=== PATIENT | female | born 1985 | race Two or more races ===

== ENCOUNTER 2025-08-25 06:06 | Emergency (ER) | payer MEDICAID, SELFPAY ==
[2025-08-25 06:08] VITALS: BMI 29.7
[2025-08-25 06:17] VITALS: BP 123/84; PULSE 110; RESP 18; TEMP 36.4; O2SAT 99
--- NOTE | 2025-08-25 06:33 | XR_ITS ---
Examination: CT abdomen and pelvis without contrast. Coronal 3-D reconstructions. Sagittal 2-D reconstructions. Date and time of exam: August 25, 2025, 0809 hours INDICATIONS: Nausea abdominal pain dark stools beginning 7 days ago COMPARISON: July 29, 2024 CTDI: vol (mGy): 9.09 DLP: (mGycm): 915 Technique: Axial images of the abdomen have been obtained, 3 mm slice thickness Intravenous contrast material has not been administered. Low dose protocols were performed. One or more of the following dose reduction techniques were used; automated exposure control, adjustment of the mA and/or KV according to patient size, use of iterative reconstruction technique. Findings: No focal liver or splenic lesions No gallstones No pancreatic or adrenal mass No renal or ureteral calculi, no hydronephrosis Aorta normal size 20 mm fat-containing umbilical hernia. No bowel obstruction Normal appendix No diverticulitis or nonspecific colitis on this noncontrast study Urinary bladder intact The osseous structures are intact IMPRESSION: No renal or ureteral calculi, no hydronephrosis Normal appendix 20 mm fat-containing umbilical hernia. No bowel obstruction No diverticulitis or nonspecific colitis on this noncontrast study
--- NOTE | 2025-08-25 06:33 | EDRME_ITS ---
Rapid Medical Screening Exam [facility] Arrival date/time: 08/25/25 06:06 40-year-old female presents to the emergency room today complaints of nausea abdominal pain and dark stools patient reports history of hiatal hernia causing her to have pain patient also reports that she has been drinking Pepto since Chief Complaint: GI Bleed Vital signs: Vital Signs Temperature 97.6 F 08/25/25 06:17 Pulse Rate 110 H 08/25/25 06:17 Respiratory Rate 18 08/25/25 06:17 Blood Pressure 123/84 08/25/25 06:17 Pulse Oximetry (%) 99 08/25/25 06:17 Oxygen Delivery Method Room Air 08/25/25 06:17 Exam: On exam patient does not appear ill or toxic no acute distress Clinical Impression: Lab work and imaging ordered
[2025-08-25 07:28] LABS: Collection Type, Urine Clean Catch
[2025-08-25] MEDS: ONDANSETRON ODT 4 MG TABRAP PO (07:34)
[2025-08-25 07:36] LABS: Basophils # (Auto) 0.0 Thou/mm3 (0.0-0.2); Basophils % (Auto) 0 % (0-2.5); Eosinophils # (Auto) 0.0 Thou/mm3 (0.0-0.5); Eosinophils % (Auto) 0 % (0-10); Hematocrit 40.0 % (36.0-46.0); Hemoglobin 13.6 g/dL (12.0-16.0); Immature Granulocytes Auto 0.03 Thou/mm3 (0.00-0.00); Lymphocytes # (Auto) 1.8 Thou/mm3 (1.0-4.8); Lymphocytes % (Auto) 14 % (10-50); Mean Corpuscular HGB Conc 34.0 g/dl (31.0-37.0); Mean Corpuscular Hemoglobin 27.9 pg (25.0-35.0); Mean Corpuscular Volume 82 fL (80-100); Monocytes # (Auto) 0.7 Thou/mm3 (0.0-0.8); Monocytes % (Auto) 6 % (0-12); Neutrophils # (Auto) 10.1 Thou/mm3 (1.8-7.7); Neutrophils % (Auto) 80 % (37-80); Nucleated Red Blood Cell # 0.00 Thou/mm3 (0.00-0.00); Nucleated Red Blood Cell % 0 /100 WBC (0); Platelet Count 404 Thou/mm3 (140-440); RDW Standard Deviation 40.6 fL (36.4-46.3); Red Blood Count 4.88 Miln/mm3 (4.00-5.20); White Blood Count 12.7 Thou/mm3 (3.6-11.0)
[2025-08-25 07:42] LABS: Bilirubin,Urine Negative (Negative); Blood,Urine 1+ (Negative); Clarity,Urine Clear (Clear/Hazy); Color,Urine Yellow (Lt Yel-Yel); Culture Indicated,Urine Not Indicated; Glucose, Urine Negative (Negative); Hyaline Casts,Urine < 1 /hpf (0-1); Ketones,Urine 1+ (Negative); Leukocyte Esterase,Urine Negative (Negative); Nitrite,Urine Negative (Negative); PH,Urine 6.5 (5.0-7.0); Protein,Urine 1+ (Neg - Trace); RBC,Urine 3 /hpf (0-3); Specific Gravity,Urine 1.026 (1.001-1.035); Squamous Epithelial Cell,Urine 3 /hpf (0-5); Urobilinogen,Urine Negative mg/dL (0.0-1.0); WBC,Urine 4 /hpf (0-5)
[2025-08-25 07:46] LABS: Alanine Aminotransferase 26 U/L (10-49); Albumin, Serum 5.0 gm/dL (3.5-5.0); Albumin/Globulin Ratio 2.4 (1.2-2.2); Alkaline Phosphatase 82 U/L (46-116); Anion Gap 11 (7-16); Aspartate Amino Transferase 21 U/L (0-34); BUN/Creatinine Ratio 14 Ratio (12-20); Bilirubin,Total 0.5 mg/dL (0.3-1.2); Blood Urea Nitrogen 13 mg/dL (9-23); Calcium 10.2 mg/dL (8.3-10.6); Calcium (Corrected) 10.2 mg/dL (8.5-10.1); Carbon Dioxide 26.7 mMol/L (20.0-31.0); Chloride 103 mMol/L (98-107); Creatinine (Component) 0.9 mg/dL (0.6-1.3); Estimated Creatinine Clearance 93.7 mL/min (>60); Globulin 2.1 gm/dL (2.3-3.5); Glucose 105 mg/dL (74-106); Lipase 31 U/L (12-53); Osmolality,Calculated 281 (275-295); Potassium 3.4 mMol/L (3.4-5.1); Sodium 141 mMol/L (136-145); Total Protein 7.1 gm/dL (5.7-8.2); Troponin I < 0.002 ng/mL (0.0-0.045); eGFR > 60 See Note
[2025-08-25 07:54] LABS: HCG Qualitative,Urine Negative
--- NOTE | 2025-08-25 09:54 | EDNOTE_ITS ---
Nausea/Vomit./Diarrhea-RME/HPI General Chief complaint: GI Bleed Stated complaint: VOMITING, BLACK STOOLS Time Seen by Provider: 08/25/25 09:53 Arrival date/time: 08/25/25 06:06 RME / HPI RME / HPI Narrative: 08/25/25 06:06 40-year-old female presents to the emergency room today complaints of nausea abdominal pain and dark stools patient reports history of hiatal hernia causing her to have pain patient also reports that she has been drinking Pepto since DR. SENA MAIN ED EVALUATION 40 year old female with history of bipolar disorder and anxiety presents to the ED for evaluation of abdominal pain beginning 6 days ago. Described as a dull ache that is located most to the upper abdomen, rating 6/10 in severity. Accompanied by nausea, vomiting, and black stools. Reports taking Naproxen, Pepto bismol, and Mylanta with little improvement in pain. No other associated symptoms reported. Denies fever, chills, sweating. Denies chest pain, cough, shortness of breath. Denies dysuria, urinary frequency and urgency. Exam: On exam patient does not appear ill or toxic no acute distress Impression: Lab work and imaging ordered Related Data Previous Rx's ?Medication ?Instructions ?Recorded naproxen 500 mg tablet 500 mg PO BID #20 tabs 07/09 eszopiclone 2 mg tablet (Lunesta) 5 mg (2.5 x 2 mg) PO .qhs #5 tabs 12/14/18 ondansetron HCl 4 mg tablet 8 mg (2 x 4 mg) PO Q8H PRN nausea 02/07/21 (Zofran) and vomiting #20 tabs pantoprazole 20 mg tablet,delayed 20 mg PO QDAY #30 ta bs 02/08/21 release (Protonix) prochlorperazine 25 mg rectal 25 mg MT BID PRN nausea and 02/08/21 suppository (Compazine) vomiting #12 ea sucralfate 1 gram tablet (Carafate) 1 g PO BID #30 tab s 02/08/21 promethazine 12.5 mg rectal 12.5 mg MT Q8HR PRN nausea and 02/12/21 suppository vomiting #12 ea hydrocodone 5 mg-acetaminophen 325 1 tab PO Q4H PRN pa in #14 tabs 10/10/21 mg tablet promethazine 12.5 mg rectal 12.5 mg MT Q6H PRN nausea and 08/06/21 suppository vomiting #12 ea aluminum-mag hydroxide-simethicone 5 ml PO QID PRN ind igestion #375 mL 08/07/21 400 mg-400 mg-40 mg/5 mL oral susp (Maalox Maximum Strength) famotidine 20 mg tablet 20 mg PO QDAY #30 tabs 08/07 omeprazole 20 mg capsule,delayed 20 mg PO QDAY #14 cap s 08/12/21 release ondansetron 4 mg disintegrating 4 mg PO Q8H PRN nausea and 07/29/24 tablet vomiting #10 tabs omeprazole 20 mg capsule,delayed 20 mg PO QDAY #30 cap s 08/25/25 release ondansetron 4 mg disintegrating 4 mg PO Q8H PRN nausea and 08/25/25 tablet vomiting #14 tabs Allergies Allergy/AdvReac Type Severity Reaction Status Date / Time gabapentin Allergy Intermediate HIVES Verified 08/25/25 06:08 tramadol Allergy Mild HEART Verified 08/25/25 06:08 PALPITATIONS Review of Systems Review of Systems Systems Reviewed: All systems reviewed, normal except as documented Past Medical History Past Medical History PSYCHO/SOCIAL: Positive Psychiatric Problems, Recreational Drug Use, Bipolar Disorder, Depression and Anxiety Surgical History SURGICAL: Positive Section Social History SMOKING STATUS: Never smoker ED Exam Narrative Physical exam: GENERAL APPEARANCE: alert and oriented x 4, well-developed, well-nourished, no acute distress HEENT: Normocephalic, atraumatic; pupils equal, round, reactive to light; EOMI; mucous membranes pink, moist; oropharynx clear NECK: Supple LUNGS: CTABL; no wheezes, no rales, no rhonchi HEART: Regular rate, regular rhythm; normal S1, S2; no murmurs ABDOMEN: non distended; normal BS; soft, no tenderness, no guarding, no rebound; no masses, no organomegaly, no hernia EXTREMITIES: atraumatic; no edema NEUROLOGIC: awake; alert and oriented x4; cranial nerves II-XII grossly intact PSYCHIATRIC: appropriate mood and affect SKIN: warm, dry, normal color; no rashes Course Course Course Narrative: Patient remains clinically stable throughout the emergency department visit. We reviewed all the results, analysis, and treatment plans. Patient is amenable to discharge. Strict return precautions were outlined. Quality Measures none Orders Category Date Time Status CT abdomen pelvis wo con Stat Exams 08/25/25 06:33 Completed CBC Stat Lab 08/25/25 07:19 Completed Comprehensive Metabolic Panel Stat Lab 08/25/25 07:19 Completed HCG Qualitative,Urine Stat Lab 08/25/25 07:23 Completed Lipase Stat Lab 08/25/25 07:19 Completed Troponin I Stat Lab 08/25/25 07:19 Completed UA, C/S IF [Urinalysis, C/S if Indicated] Stat Lab 08/25/25 07:23 Completed Lidocaine 2% Viscous [Xylocaine 2% Viscous] Med 08/25/25 10:02 Discontinued 15 ml PO X1 ONE Ondansetron Odt [Zofran Odt] Med 08/25/25 06:33 Discontinued 4 mg PO X1 ONE Pantoprazole [Protonix] Med 08/25/25 10:02 Discontinued 20 mg PO X1 ONE mg Hyd/Al Hyd/Mayelin Susp [Maalox Susp] Med 08/25/25 10:02 Discontinued 30 ml PO X1 ONE Vital Signs Vital signs: Vital Signs Temperature 97.6 F 08/25/25 06:17 Pulse Rate 110 H 08/25/25 06:17 Respiratory Rate 18 08/25/25 06:17 Blood Pressure 123/84 08/25/25 06:17 Pulse Oximetry (%) 99 08/25/25 06:17 Oxygen Delivery Method Room Air 08/25/25 06:17 Pulse ox is 99% on room air which is adequate. Nausea/Vomiting/Diarrhea MDM Narrative MDM Narrative:: Imani Donovan am scribing for and in the presence of Dr. Sena. Patient data External records reviewed:: [facility] previous records Clinical information provided by:: patient Social determinants that could affect healthcare access:: mental health Patient has the following chronic illnesses:: Bipolar disorder Anxiety How is presenting disease/condition affected by chronic disease/condition?: uneffected by Evaluation data The following diagnostics were reviewed and interpreted by me:: lab results and radiology exam(s) Lab and/or radiology exams considered but not ordered:: None Interpretation Summary: Ordering Physician: Jose ROPER)Elder NP Date of Service: 08/25/25 Procedure(s): CT abdomen pelvis wo con Accession Number(s): [id number] cc: Jose (VENUS),Elder DONOVAN; Cruzito Parry MD; NO PRIMARY/FAMILY,PHYSICIAN~ Examination: CT abdomen and pelvis without contrast. Coronal 3-D reconstructions. Sagittal 2-D reconstructions. Date and time of exam: August 25, 2025, 0809 hours INDICATIONS: Nausea abdominal pain dark stools beginning 7 days ago COMPARISON: July 29, 2024 CTDI: vol (mGy): 9.09 DLP: (mGycm): 915 Technique: Axial images of the abdomen have been obtained, 3 mm slice thickness Intravenous contrast material has not been administered. Low dose protocols were performed. One or more of the following dose reduction techniques were used; automated exposure control, adjustment of the mA and/or KV according to patient size, use of iterative reconstruction technique. Findings: No focal liver or splenic lesions No gallstones No pancreatic or adrenal mass No renal or ureteral calculi, no hydronephrosis Aorta normal size 20 mm fat-containing umbilical hernia. No bowel obstruction Normal appendix No diverticulitis or nonspecific colitis on this noncontrast study Urinary bladder intact The osseous structures are intact IMPRESSION: No renal or ureteral calculi, no hydronephrosis Normal appendix 20 mm fat-containing umbilical hernia. No bowel obstruction No diverticulitis or nonspecific colitis on this noncontrast study Dictated By: Cruzito Parry MD Signed By: <Electronically signed by Cruzito Parry MD in OV> 08/25/25 0858 Medications / Prescriptions Medications / Prescriptions considered but not ordered:: None Medication administrations:: Medication Administration History Discontinued Medications Al Hydrox/Mg Hydrox/Simethicone (Mg Hyd/Al Hyd/Mayelin (Maalox Reg) Susp 30 Ml Udc) 30 ml PO X1 ONE Stop: 08/25/25 10:03 Last Admin: 08/25/25 10:53 Dose: 30 ml Documented By: Lidocaine HCl (Lidocaine Viscous 2% 15 Ml Udc) 15 ml PO X1 ONE Stop: 08/25/25 10:03 Last Admin: 08/25/25 10:53 Dose: 15 ml Documented By: Ondansetron HCl (Ondansetron Odt 4 Mg Tabrap) 4 mg PO X1 ONE; Protocol Stop: 08/25/25 06:34 Last Admin: 08/25/25 07:34 Dose: 4 mg Documented By: DHRUV Pantoprazole Sodium (Pantoprazole 20 Mg Tablet) 20 mg PO X1 ONE Stop: 08/25/25 10:03 Last Admin: 08/25/25 10:56 Dose: 20 mg Documented By: See above Consultations Consultation(s) initiated? (list below): No Diagnosis Nausea Differential Diagnosis: food poisoning, gastroenteritis, drug-induced nausea and vomiting and dehydration Most likely diagnosis given after review of the tests above:: Gastritis Admission Indicated Admission indicated?: not indicated Explain why admission is indicated or not indicated:: With no condition needing emergent intervention, there was no indication for admission. Admission Request Was there a request for admission?: No Disposition Plan Disposition Plan: Discharge Discharge Attestation Discharge Attestation: The patient and all family members were given an opportunity to ask questions and understood the discharge instructions. Discharge instructions specifically effects, indications for sooner follow up or return to the emergency department, and the expected course of current diagnosis. Patient condition: Stable Discharge Plan Plan Patient Disposition: HOME (Self Care) Prescriptions/Referrals Prescriptions/Med Rec: New ondansetron 4 mg tablet,disintegrating 4 mg PO Q8H PRN (Reason: nausea and vomiting) Qty: 14 0RF omeprazole 20 mg capsule,delayed release(DR/EC) 20 mg PO QDAY Qty: 30 0RF No Action naproxen 500 mg tablet 500 mg PO BID Qty: 20 0RF eszopiclone [Lunesta] 2 mg tablet 5 mg PO .qhs Qty: 5 0RF prochlorperazine [Compazine] 25 mg suppository 25 mg MT BID PRN (Reason: nausea and vomiting) Qty: 12 0RF pantoprazole [Protonix] 20 mg tablet,delayed release (DR/EC) 20 mg PO QDAY Qty: 30 0RF sucralfate [Carafate] 1 gram tablet 1 g PO BID Qty: 30 0RF promethazine 12.5 mg suppository 12.5 mg MT Q8HR PRN (Reason: nausea and vomiting) Qty: 12 0RF promethazine 12.5 mg suppository 12.5 mg MT Q6H PRN (Reason: nausea and vomiting) Qty: 12 0RF alum-mag hydroxide-simeth [Maalox Maximum Strength] 400-400-40 mg/5 mL suspension 5 ml PO QID PRN (Reason: indigestion) Qty: 375 0RF famotidine 20 mg tablet 20 mg PO QDAY Qty: 30 0RF omeprazole 20 mg capsule,delayed release(DR/EC) 20 mg PO QDAY Qty: 14 0RF ondansetron HCl [Zofran] 4 mg tablet 8 mg PO Q8H PRN (Reason: nausea and vomiting) Qty: 20 0RF hydrocodone-acetaminophen 5-325 mg tablet 1 tab PO Q4H MDD 4 PRN (Reason: pain) Qty: 14 0RF ondansetron 4 mg tablet,disintegrating 4 mg PO Q8H PRN (Reason: nausea and vomiting) Qty: 10 0RF Referrals: No Primary/Family,Physician [Primary Care Provider] - In 1 week Problem List Clinical Impression: Gastritis Patient/Caregiver Discharge Instructions Education Materials: ED Gastritis (Adult) Print Language: Faroese Stand Alone Forms: [employer] Award Info., Patient Portal Info Letter
--- NOTE | 2025-08-25 09:54 | PC.NURSE ---
PT STATES SHE NEEDS TO GET TO WORK. ASKED DR. ROQUE TO REVIEW PT. PT PUT IN OLD TRIAGE FOR TO REVIEW.
[2025-08-25] MEDS: LIDOCAINE VISCOUS 2% 15 ML UDC PO (10:53)
[2025-08-25] MEDS: MG HYD/AL HYD/SIME (Maalox Reg) SUSP 30 ML UDC PO (10:53)
[2025-08-25] MEDS: PANTOPRAZOLE 20 MG TABLET PO (10:56)
== END 2025-08-25 11:00 | disposition home or self-care (01) ==
PROVIDERS: Nurse Practitioner Primary Care; Emergency Provider Emergency Medicine
DX: K29.70 Gastritis, unspecified, without bleeding (principal); F31.9 Bipolar disorder, unspecified; K42.9 Umbilical hernia without obstruction or gangrene
CPT/HCPCS: 36415; 74176; 80053; 81001; 81025; 83690; 84484; 85025; 99283; J3490; Q0162; A9270